=== PATIENT | female | born 1990 | race Caucasian/White ===

== ENCOUNTER 2019-04-20 15:41 | Emergency (ER) | payer MEDICAID, OTHER ==
[~2019-04-20] VITALS: Ht 152.4 cm; Wt 41.0 kg
[~2019-04-20 15:41] MED LIST: AMOX500C6 PO; IBUP-1542 PO
[2019-04-20 15:53] VITALS: Ht 152.4 cm; Wt 41.0 kg
[2019-04-20] MEDS ORDERED: KETOROLAC 60 MG INJ IM STA (16:41)
--- NOTE | 2019-04-20 16:44 | ERD ---
ER Documentation Chief Complaint Chief Complaint back pain since yesterday morning HPI Patient is a 28 years old female with PMHx of pyelonephritis presenting to the clinic for low back pain, suprapubic pain, bladder fullness, dysuria, urinary frequency since yesterday. Patient denies taking any OTC medication. Patient denies fever, chills, night sweats but admits to pain worsening with movement. Patient states that her low back pain is slowly radiating to mid back. ROS All systems reviewed and are negative except as per history of present illness. Medications Home Meds Active Scripts Phenazopyridine Hcl* (Pyridium*) 200 Mg Tab, 200 MG PO TID PRN for URINARY PAIN, #6 TAB Prov:ANNE MARIE BRIGGS PA-C 04/20/19 Nitrofurantoin Monohyd Macrocr* (Macrobid*) 100 Mg Capsr, 100 MG PO HS for 7 Days, CAP Prov:ANNE MARIE BRIGGS PA-C 04/20/19 Reported Medications Amoxicillin* (Amoxil*) 500 Mg Capsule, PO BID 02/22/13 Ibuprofen* (Ibuprofen*) 600 Mg Tablet, PO BID 02/22/13 Allergies Allergies: Coded Allergies: No Known Drug Allergies (Verified Allergy, Mild, 02/19/13) PMhx/Soc History of Surgery: Yes () Anesthesia Reaction: No Hx Neurological Disorder: No Hx Respiratory Disorders: No Hx Cardiac Disorders: No Hx Psychiatric Problems: No Hx Miscellaneous Medical Probl: No Hx Alcohol Use: No Hx Substance Use: No Hx Tobacco Use: No Physical Exam Vitals Vital Signs Date Temp Pulse Resp B/P (MAP) Pulse Ox O2 O2 Flow FiO2 Time Delivery Rate 04/20/19 98.6 90 19 111/59 98 15:53 (76) Physical Exam Const: No acute distress Head: Atraumatic Eyes: Normal Conjunctiva Resp: Clear to auscultation bilaterally Cardio: Regular rate and rhythm, no murmurs Abd: Soft, non distended. Normal bowel sounds. Suprapubic tenderness. Back: Lumbar tenderness, negative CVAT. Neur: Awake and alert Psych: Normal Mood and Affect Results 24 hrs Laboratory Tests Test 04/20/19 16:54 04/20/19 16:55 Urine Color YELLOW Urine Clarity SLIGHTLY CLOUDY Urine pH 6.0 Urine Specific [place] 1.028 Urine Ketones 1+ mg/dL Urine Nitrite NEGATIVE mg/dL Urine Bilirubin NEGATIVE mg/dL Urine Urobilinogen 1+ mg/dL Urine Leukocyte Esterase NEGATIVE Umm/ul Urine Microscopic RBC 0 /HPF Urine Microscopic WBC 1 /HPF Urine Squamous Epithelial Cells FEW /HPF Urine Mucus MANY /HPF Urine Hemoglobin NEGATIVE mg/dL Urine Glucose NEGATIVE mg/dL Urine Total Protein NEGATIVE mg/dl POC Beta HCG, Qualitative NEGATIVE Current Medications Medications Dose Sig/Shawn Start Time Status Last (Trade) Ordered Route PRN Stop Time Admin Dose Reason Admin Ketorolac 60 mg ONCE STAT 04/20/19 DC Tromethamine IM 16:41 (Toradol) 04/20/19 16:43 200 mg ONCE ONCE 04/20/19 DC 04/20/19 Phenazopyridi PO 17:00 17:02 ne HCl 04/20/19 17:01 (Pyridium) Procedures/MDM Patient was seen and evaluated for back/suprapubic pain and dysuria. Patient's urinalysis is grossly unremarkable, however, physical exam is highly suspicious for UTI. Patient is stable and ready for discharge. Patient was advised to f/u with PCP. Departure Diagnosis: Primary Impression: UTI (urinary tract infection) Urinary tract infection type: site unspecified Hematuria presence: without hematuria Qualified Codes: N39.0 - Urinary tract infection, site not specified Condition: Stable Patient Instructions: Understanding Urinary Tract Infections (UTIs) Referrals: [facility] Additional Instructions: Patient advised to return to the ED immediately for new or worsening symptoms. Patient advised to follow up with primary care provider in the next 24-48 hours. Patient verbalized understanding and agrees with treatment plan and course of action. If patient has no primary care they may follow up with [facility] [address] [place] [id number] or [facility] [address] [place] [address] or [facility] [address] [place] [address] ANNE MARIE BRIGGS PA-C Apr 20, 2019 16:44
[2019-04-20] MEDS ORDERED: PHENAZOPYRIDINE 100 MG TAB PO ONE (17:00)
[2019-04-20] MEDS ORDERED: NITR-58 PO (17:59)
[2019-04-20] MEDS ORDERED: PHEN-538 PO (17:59)
[2019-04-20 18:11] VITALS: BP 124/79; PULSE 78; RESP 20
== END 2019-04-20 18:17 | disposition home or self-care (01) ==
LOC: FTE 15:41
DX: N39.0 Urinary tract infection, site not specified (principal)
CPT/HCPCS: 81001; 81025; Z7502; Z7610; 81003; 99283; J1885